=== PATIENT | female | born 1970 | race Two or more races ===

== ENCOUNTER 2018-07-14 06:17 | Day surgery (SDC) | payer BC ==
[~2018-07-14] VITALS: Ht 162.6 cm; Wt 60.7 kg
[~2018-07-14 06:17] MED LIST: NONE PER PT
[2018-07-14] MEDS ORDERED: LACTATED RINGERS 1,000 ML IV SCH (06:49)
[2018-07-14] MEDS ORDERED: NEOMY/POLYMYXIN B GU IRR. 1 ML ONE (06:57)
[2018-07-14] MEDS ORDERED: EPINEPHRINE 1 MG/ML, 1ML ONE (06:57)
[2018-07-14] MEDS ORDERED: BUPIVACAINE/PF 0.25% ONE ×2 (06:57→10:43)
[2018-07-14 07:11] LABS: HCG UR SG 1.014 (1.003-1.030)
[2018-07-14 07:22] VITALS: BP 127/87
[2018-07-14] MEDS ORDERED: SCOPOLAMINE PATCH, 1.5MG PATCH.TD72 TD ONE (07:30)
[2018-07-14] MEDS ORDERED: ACETAMINOPHEN 500 MG TABLET PO ONE (07:30)
[2018-07-14] MEDS ORDERED: DIAZEPAM 5 MG TABLET PO ONE (07:30)
[2018-07-14] MEDS ORDERED: MIDAZOLAM 1 MG/ML, 2ML ONE (08:42)
[2018-07-14] MEDS ORDERED: FENTANYL PF 250 MCG/5ML ONE (08:42)
[2018-07-14] MEDS ORDERED: GLYCOPYRROLATE 0.2MG/1ML, 5ML ONE (09:00)
[2018-07-14] MEDS ORDERED: DEXAMETHASONE 4 MG/ML, 1ML ONE (09:08)
[2018-07-14] MEDS ORDERED: ONDANSETRON 2MG/ML, 2ML ONE (09:08)
[2018-07-14] MEDS ORDERED: CEFAZOLIN 1,000 MG ONE ×2 (09:09)
[2018-07-14] MEDS ORDERED: MIDAZOLAM 1 MG/ML, 2ML IV PRN (09:30)
[2018-07-14] MEDS ORDERED: PROMETHAZINE 25 MG SUPP PR PRN (09:30)
[2018-07-14] MEDS ORDERED: ONDANSETRON 2MG/ML, 2ML IV PRN (09:30)
[2018-07-14] MEDS ORDERED: MEPERIDINE/PF 25MG/0.5ML IVPush PRN (09:30)
[2018-07-14] MEDS ORDERED: DIAZEPAM 5 MG/ML, 2ML IVPush PRN (09:30)
[2018-07-14] MEDS ORDERED: PROMETHAZINE 25 MG/ML, 1ML IM PRN (09:30)
[2018-07-14] MEDS ORDERED: OXYcodone 5 MG/5 ML ORAL.SOL UDC PO PRN (09:30)
[2018-07-14] MEDS ORDERED: hydrALAzine 20 MG/ML, 1ML IV PRN (09:30)
[2018-07-14] MEDS ORDERED: LABETALOL 5MG/ML, 20ML IV PRN (09:30)
[2018-07-14] MEDS ORDERED: EPHEDRINE 50 MG/ML, 1ML IVPush PRN (09:30)
[2018-07-14] MEDS ORDERED: ONDANSETRON ODT 8 MG PO PRN ×2 (09:30→10:00)
[2018-07-14] MEDS ORDERED: ALBUTEROL SULFATE 2.5 MG/3 ML NPPB PRN (09:30)
[2018-07-14] MEDS ORDERED: HALOPERIDOL 5 MG/ML IV PRN (09:30)
[2018-07-14] MEDS ORDERED: MORPHINE SULFATE 4 MG/ML, 1ML IVPush PRN (09:30)
[2018-07-14] MEDS ORDERED: HYDROmorphone 2 MG/ML, 1ML IVPush PRN (09:30)
[2018-07-14] MEDS ORDERED: SUCCINYLCHOLINE 20 MG/ML, 10ML ONE (10:37)
[2018-07-14] MEDS ORDERED: PROPOFOL 10 MG/ML, 20ML ONE (10:37)
[2018-07-14] MEDS ORDERED: ROCURONIUM 10MG/ML,5ML ONE (10:37)
[2018-07-14] MEDS ORDERED: MEPERIDINE/PF 25MG/ML,1ML ONE (11:02)
[2018-07-14] MEDS ORDERED: FENTANYL PF 100 MCG/2ML ONE (11:08)
[2018-07-14] MEDS ORDERED: OXYcodone 5 MG/5 ML ORAL.SOL UDC ONE (11:08)
[2018-07-14] MEDS: FENTANYL PF 100 MCG/2ML IV PRN ×2 (11:10→11:32)
[2018-07-14] MEDS ORDERED: KETOROLAC 30 MG/1 ML ONE (11:22)
[2018-07-14] MEDS ORDERED: KETOROLAC 30 MG/1 ML IVPush PRN (11:30)
[2018-07-14] MEDS ORDERED: HYDROcodone/APAP 5/325 TABLET PO PRN (15:00)
[2018-07-14] MEDS ORDERED: OXYcodone/APAP 5/325MG TABLET PO PRN (15:00)
== END 2018-07-14 16:00 | disposition home or self-care (01) ==
LOC: OUT 06:17
PROVIDERS: ATTEND Obstetrics & Gynecology Female Pelvic Medicine and Reconstructive Surgery
DX: D25.1 Intramural leiomyoma of uterus (principal); N92.0 Excessive and frequent menstruation with regular cycle; N39.3 Stress incontinence (female) (male); N94.6 Dysmenorrhea, unspecified; N81.89 Other female genital prolapse; N83.8 Other noninflammatory disorders of ovary, fallopian tube and broad ligament; N32.81 Overactive bladder
CPT/HCPCS: 57265; 57282; 57288; 58552; 81025; 88307; C1771; J0171; J0330; J0690; J1100; J1885; J2175; J2250; J2405; J2704; J3010; J3490